=== PATIENT | male | born 1990 | race Caucasian/White ===

== ENCOUNTER → 2017-05-21 | Outpatient (CLI) | payer OTHER | LOC: CFH 09:18 | PROVIDERS: ATTEND Nurse Practitioner Primary Care | DX: Z13.220 Encounter for screening for lipoid disorders (principal); M25.571 Pain in right ankle and joints of right foot; E55.9 Vitamin D deficiency, unspecified; R53.83 Other fatigue; E78.2 Mixed hyperlipidemia; E88.81 Metabolic syndrome and other insulin resistance; Z79.899 Other long term (current) drug therapy ==

== ENCOUNTER 2020-02-23 05:37 | Emergency (ER) | payer OTHER ==
[~2020-02-23] VITALS: Ht 172.7 cm; Wt 122.7 kg
--- NOTE | 2020-02-23 06:19 | NUR ---
pt came into ed today due to SOB, cough, sore throat, GERONIMO, fatigue, and CP. pt reports CP began thursday, worsens with coughing. pt sitting up on gurney, pulses 2+, pt appears slightly uncomfortable. gross neuro intact. placed on spo2/bp/ecg monitoring at this time. pt is sinus tach at 113. wctm.
[2020-02-23 06:28] LABS: BASOPHILS % (AUTO) 1 % (0-1); EOSINOPHILS % (AUTO) 0 % (1-7); LYMPHOCYTES % (AUTO) 19 % (22-44); MEAN CORPUSCULAR HEMOGLOBIN 29.5 pg (27.5-34.5); MEAN CORPUSCULAR HGB CONC 34.4 g/dL (33.2-36.2); MEAN PLATELET VOLUME 7.8 fL (7.4-10.4); MONOCYTES % (AUTO) 13 % (2-9); NEUTROPHILS % (AUTO) 67 % (42-75); PLATELET COUNT 206 x10^3/uL (130-400); RED BLOOD COUNT 4.96 x10^6/uL (4.38-5.82); RED CELL DISTRIBUTION WIDTH 14.4 % (9.4-14.8)
[2020-02-23 06:30] LABS: MD NO
[2020-02-23 06:42] LABS: ANION GAP 5 mmol/L (5-15); CHLORIDE 103 mmol/L (98-107)
[2020-02-23 06:43] LABS: ALANINE AMINOTRANSFERASE 47 U/L (12-78); ALBUMIN 3.5 g/dL (3.4-5.0); ALKALINE PHOSPHATASE 66 U/L (45-117); BILIRUBIN,TOTAL 0.4 mg/dL (0.2-1.0); CALCIUM 8.5 mg/dL (8.5-10.1); CREATININE 1.04 mg/dL (0.7-1.3); TOTAL PROTEIN 8.1 g/dL (6.4-8.2)
--- NOTE | 2020-02-23 06:58 | NUR ---
PT SITTING UP IN [facility], [facility], BED IN LOWEST, CALL LIGHT ON LAP. WAITING FOR TEST RESULTS. WCTM.
--- NOTE | 2020-02-23 07:08 | NUR ---
bedside report to Tanvir FITZPATRICK, pt care transferred at this time.
[2020-02-23 07:35] VITALS: BP 138/76
--- NOTE | 2020-02-23 07:36 | NUR ---
pt resting in bed no distress, room air, vss, no complaints of pain
[2020-02-23] MEDS ORDERED: ACETAMINOPHEN 325 MG TABLET PO ONE (08:00)
[2020-02-23] MEDS ORDERED: PLEASE ENTER ALLERGIES MC SCH (08:30)
[2020-02-23] MEDS ORDERED: ACETAMINOPHEN 325 MG TABLET ONE (08:45)
== END 2020-02-23 09:00 | disposition home or self-care (01) ==
LOC: ED 06:17
DX: J06.9 Acute upper respiratory infection, unspecified (principal); R00.0 Tachycardia, unspecified; I25.2 Old myocardial infarction
CPT/HCPCS: 36415; 71045; 80053; 85025; 93005; 99285